=== PATIENT | female | born 1950 | race Caucasian/White ===

== ENCOUNTER 2017-09-30 20:45 | Inpatient (IN) | payer OTHER ==
[~2017-09-30] VITALS: Ht 157.5 cm; Wt 73.9 kg
[2017-09-30 20:45] VITALS: BP 119/43
[~2017-09-30 20:45] MED LIST: [UNRECOGNIZED DRUG - CODE]
--- NOTE | 2017-09-30 20:57 | NUR ---
PT AMBULATED TO BED 6
[2017-09-30] MEDS ORDERED: METO-485 PO (21:04)
[2017-09-30] MEDS ORDERED: INSU100S22 SUBQ (21:04)
[2017-09-30] MEDS ORDERED: SITA100T8 PO (21:04)
[2017-09-30] MEDS ORDERED: HUM SUBQ (21:04)
[2017-09-30] MEDS ORDERED: LISI10TA11 PO (21:04)
[2017-09-30] MEDS ORDERED: ERGO500028 PO (21:04)
[2017-09-30] MEDS ORDERED: ATOR20TA PO (21:04)
[2017-09-30] MEDS ORDERED: OMEP20TC12 PO (21:04)
[2017-09-30] MEDS ORDERED: FLOR250 PO (21:04)
[2017-09-30] MEDS ORDERED: ASPI-1677 PO (21:04)
[2017-09-30] MEDS ORDERED: GABA100C PO (21:04)
[2017-09-30] MEDS ORDERED: NAPR-1717 PO (21:04)
--- NOTE | 2017-09-30 21:04 | NUR ---
Dr. Chávez evaluating patient at bedside.
--- NOTE | 2017-09-30 21:08 | NUR ---
PATIENT PRESENTS TO ED WITH GENERALIZED BODY PAIN X 2 HOURS. PT DENIES N/V; SKIN IS PINK/WARM/DRY; AAOX4 WITH EVEN AND STEADY GAIT; LUNGS CLEAR BL; HR EVEN AND REGULAR; PT DENIES ANY FEVER, SOB, OR COUGH AT THIS TIME; PATIENT STATES PAIN OF 8/10 AT THIS TIME; VSS; PATIENT POSITIONED FOR COMFORT; HOB ELEVATED; BEDRAILS UP X1; BED DOWN. ER MD MADE AWARE OF PT STATUS.
[2017-09-30] MEDS ORDERED: KETOROLAC 30 MG/ML VIAL IVP ONE (21:10)
[2017-09-30] MEDS ORDERED: NACL 0.9% 1,000 ML IV ONE (21:10)
--- NOTE | 2017-09-30 21:13 | NUR ---
X-Ray at bedside.
--- NOTE | 2017-09-30 21:33 | NUR ---
TARGET SETTER RECEIVED BLOOD DRAW
[2017-09-30 21:35] LABS: BASOPHILS # (AUTO) 0.1 K/uL (0.00-0.22); BASOPHILS % (AUTO) 0.7 % (0.0-2.0); EOSINOPHILS # (AUTO) 0.1 K/uL (0-0.4); EOSINOPHILS % (AUTO) 0.7 % (0.0-4.0); HEMATOCRIT 37.1 % (36-48); HEMOGLOBIN 12.6 g/dL (12.0-16.0); LYMPHOCYTES % (AUTO) 16.9 % (20.5-51.1); MEAN CORPUSCULAR HEMOGLOBIN 29 pg (27-31); MEAN CORPUSCULAR HGB CONC 34 g/dL (33-37); MEAN CORPUSCULAR VOLUME 86.1 fL (80-94); MONOCYTES # (AUTO) 0.6 K/uL (0.8-1.0); MONOCYTES % (AUTO) 4.7 % (1.7-9.3); PLATELET COUNT (AUTO) 325 K/uL (140-450); RED BLOOD CELL COUNT(AUTO) 4.31 MIL/uL (4.20-5.40); RED CELL DISTRIBUTION WIDTH 14.2 % (11.6-13.7); WHITE BLOOD COUNT (AUTO) 11.7 K/uL (4.8-10.8)
[2017-09-30 21:49] LABS: CARBON DIOXIDE 28.1 mmol/L (21-32); POTASSIUM 4.1 mmol/L (3.5-5.1)
[2017-09-30 21:55] LABS: ALBUMIN 3.5 g/dL (3.4-5.0); TOTAL BILIRUBIN 0.2 mg/dL (0.0-1.0)
[2017-09-30 22:21] LABS: APPEARANCE,URINE SL CLOUDY (CLEAR); BILIRUBIN,URINE NEGATIVE (NEGATIVE); BLOOD, URINE NEGATIVE (NEGATIVE); COLOR,URINE YELLOW (YELLOW); LEUKOCYTE ESTERASE ,URINE 1+ (NEGATIVE); NITRITE, URINE NEGATIVE (NEGATIVE); PH,URINE 5.5 (5.0-9.0); UGLUCOSE 3+ (NEGATIVE)
--- NOTE | 2017-09-30 22:40 | NUR ---
Dr. Chávez re-evaluating patient at bedside.
[2017-09-30 22:41] LABS: RBC,URINE 0-5 (RARE) /HPF (0-5)
[2017-09-30] MEDS ORDERED: cefTRIAXone 1,000 MG VIAL ONE (22:56)
[2017-09-30] MEDS ORDERED: MORPHINE SULFATE 2 MG/ML SYR IVP PRN (23:05)
[2017-09-30] MEDS ORDERED: LORazepam 2 MG/ML VIAL IVP PRN (23:05)
[2017-09-30] MEDS ORDERED: ONDANSETRON 4 MG/2 ML VIAL IVP PRN (23:05)
[2017-09-30] MEDS ORDERED: HYDROcodone/APAP 5/325 MG 1 TAB TAB PO PRN ×2 (23:05)
[2017-09-30] MEDS ORDERED: ACETAMINOPHEN 325 MG TAB PO PRN (23:05)
[2017-09-30] MEDS ORDERED: diphenhydrAMINE 50 MG/ML VIAL IVP ONE (23:20)
[2017-09-30 23:45] VITALS: BP 131/56
--- NOTE | 2017-09-30 23:45 | NUR ---
PATIENT ADMITTED TO THE UNIT FROM ER. PATIENT AMBULATED WITH STEADY GAIT FROM [facility]. FRENCH SPEAKING. NO SIGNS AND SYMPTOMS OF DISTRESS NOTED. NO C/O PAIN AT THIS TIME. PATIENT'S DAUGHTER FRANCISCO AT BEDSIDE. PATIENT'S DAUGHTER ABLE TO TRANSLATE TO MOTHER. PLAN OF CARE DISCUSSED WITH PATIENT AND DAUGHTER. BOTH VERBALIZED UNDERSTANDING. BED IN LOWEST POSITION, SIDE RAILS UP AND CALL LIGHT WITHIN REACH. WILL CONTINUE TO MONITOR
--- NOTE | 2017-09-30 23:49 | NUR ---
Patient will be admitted to care of dr. burt. Admited to tele. Will go to room 107-b. Belongings list completed. Report to SHAUNNA Mrach.
--- NOTE | 2017-10-01 01:30 | NUR ---
CHECKED ON PATIENT. PATIENT RESTING COMFORTABLY IN BED. NO SIGNS AND SYMPTOMS OF DISTRESS NOTED. BREATHING EVEN AND UNLABORED. WILL CONTINUE TO MONITOR.
--- NOTE | 2017-10-01 03:30 | NUR ---
CHECKED ON PATIENT. PATIENT IS ASLEEP. NO SIGNS AND SYMPTOMS OF DISTRESS NOTED. BREATHING EVEN AND UNLABORED. WILL CONTINUE TO MONITOR
[2017-10-01 04:00] VITALS: BP 130/60
[2017-10-01] MEDS: INSULIN LISPRO SLIDING SCALE 100 UNITS/ML VIAL SUBQ PRN ×2 (05:46→13:55)
[2017-10-01] MEDS: BLOOD GLUCOSE MONITORING 1 DEV DEV FS SCH ×2 (05:58→11:16)
--- NOTE | 2017-10-01 06:00 | NUR ---
CHECKED PATIENT'S BLOOD SUGAR. BS AT 407. NOTIFIED DR. KELLER. PER ARIANNA, GIVE PATIENT 10 UNITS HUMALOG INSTEAD OF ORDERED 5 UNITS
[2017-10-01 06:02] LABS: BASOPHILS # (AUTO) 0.1 K/uL (0.00-0.22); BASOPHILS % (AUTO) 0.8 % (0.0-2.0); EOSINOPHILS # (AUTO) 0.1 K/uL (0-0.4); EOSINOPHILS % (AUTO) 1.1 % (0.0-4.0); HEMATOCRIT 33.8 % (36-48); HEMOGLOBIN 11.5 g/dL (12.0-16.0); LYMPHOCYTES # (AUTO) 1.9 K/uL (2.5-16.5); LYMPHOCYTES % (AUTO) 21.1 % (20.5-51.1); MEAN CORPUSCULAR HEMOGLOBIN 30 pg (27-31); MEAN CORPUSCULAR HGB CONC 34 g/dL (33-37); MONOCYTES # (AUTO) 0.4 K/uL (0.8-1.0); MONOCYTES % (AUTO) 4.7 % (1.7-9.3); NEUTROPHILS # (AUTO) 6.4 K/uL (1.8-7.7); NEUTROPHILS % (AUTO) 72.3 % (42.2-75.2); PLATELET COUNT (AUTO) 281 K/uL (140-450); RED BLOOD CELL COUNT(AUTO) 3.88 MIL/uL (4.20-5.40); RED CELL DISTRIBUTION WIDTH 14.2 % (11.6-13.7); WHITE BLOOD COUNT (AUTO) 8.8 K/uL (4.8-10.8)
[2017-10-01] MEDS: INSULIN LISPRO 100 UNITS/ML VIAL SUBQ SCH ×2 (06:12→13:55)
[2017-10-01] MEDS ORDERED: PANTOPRAZOLE 40 MG TABEC PO SCH (06:30)
[2017-10-01 06:58] LABS: ANION GAP 10.9 (8-16); CARBON DIOXIDE 25.7 mmol/L (21-32); POTASSIUM 4.6 mmol/L (3.5-5.1); TOTAL BILIRUBIN 0.4 mg/dL (0.0-1.0)
--- NOTE | 2017-10-01 07:11 | NUR ---
PATIENT REPORT GIVEN TO MORNING NURSE AT BEDSIDE FOR CONTINUITY OF CARE. PATIENT IS IN STABLE CONDITION
--- NOTE | 2017-10-01 07:12 | NUR ---
RECEIVED REPORT FROM MANAGER ANALYTICAL RN. PATIENT IS SLEEPING BUT AROUSABLE TO NAME, NO SIGNS AND SYMPTOMS OF ACUTE DISTRESS NOTED AT THIS TIME. HAS IV TO THE RIGHT AC 20G ON SALINE LOCK. SITE IS CLEAN, DRY, PATENT AND INTACT. DISCUSSED PLAN OF CARE WITH PATIENT AND SHE VERBALIZED UNDERSTANDING. BED IN LOWEST POSITION, SIDE RAILS UP X2, CALL LIGHT WITHIN REACH. WILL CONTINUE TO MONITOR.
[2017-10-01 08:00] VITALS: BP 121/55
[2017-10-01] MEDS: METOCLOPRAMIDE 10 MG TAB PO SCH ×2 (08:35→13:51)
--- NOTE | 2017-10-01 08:45 | NUR ---
PATIENT HAS BEEN SCREENED AND CATEGORIZED MODERATE NUTRITION RISK. PATIENT WILL BE SEEN WITHIN 3-5 DAYS OF ADMISSION. 10/03/17 10/05/[address]
[2017-10-01] MEDS ORDERED: GABAPENTIN 100 MG CAP PO SCH (09:00)
[2017-10-01] MEDS ORDERED: ATORVASTATIN 20 MG TAB PO SCH (09:00)
[2017-10-01] MEDS ORDERED: ASPIRIN 81 MG TAB.CHEW PO SCH (09:00)
[2017-10-01] MEDS ORDERED: INSULIN LANTUS 100 UNITS/ML 10 ML VIAL SUBQ SCH ×2 (09:00→21:00)
[2017-10-01] MEDS ORDERED: NON-FORMULARY ITEM (Omeprazole (Omeprazole) 1 TAB) PO SCH (09:00)
--- NOTE | 2017-10-01 09:19 | NUR ---
ASKED PATIENT IF SHE IS HAVING ANY SYMPTOMS OF UTI....FREQUENCY, BURNING, ETC., PATIENT DENIES ANY SYMPTOMS.
--- NOTE | 2017-10-01 11:45 | NUR ---
PATIENT WENT FOR STRESS TEST.
[2017-10-01 12:00] VITALS: BP 134/65
--- NOTE | 2017-10-01 13:08 | NUR ---
CALLED DR. RODGERS AT 12:07 TO LET HIM KNOW PATIENT IS READY FOR STRESS TEST. WAS TOLD BY NURSE THAT HE WAS IN A MIDDLE OF A CATH PROCEDURE. HE STATED THAT HE WAS AWARE OF THE 12PM SCHEDULED STRESS TEST AND THAT WE WILL STILL BE DOING IT TODAY.
--- NOTE | 2017-10-01 14:07 | NUR ---
Radiology Resident Notes: I met with patient and daughter at bedside to discuss information requested by patient in regards to obtaining a list of dme companies, besides [employer] and stated she will review list and follow up with dme companies. Addendum: 10/05/17 at 1315 by Em Coburn Radiology Resident Notes: Wrong Patient Please Disregard note.
--- NOTE | 2017-10-01 15:17 | NUR ---
FAXED INITIAL REVIEW TO [facility] [phone] PHON SUKI [phone]
--- NOTE | 2017-10-01 15:30 | NUR ---
PATIENT CLEARED TO BE DISCHARGED. IN STABLE CONDITION. GAVE PATIENT DISCHARGE INSTRUCTIONS. INFORMED HER ON WHEN TO SEEK EMERGENCY MEDICAL ATTENTION. PATIENT VERBALIZED UNDERSTANDING. REMOVED IV FROM SITE. CATHETER INTACT. ALL BELONGINGS COLLECTED BY PATIENT AND FAMILY. ID BANDS REMOVED. WILL WALK OUT WITH PATIENT.
== END 2017-10-01 15:30 | disposition home or self-care (01) | DRG 206 ==
LOC: MED 20:45 → MTU 23:02
PROVIDERS: ADMIT Hospitalist; ATTEND Hospitalist
DX: M94.0 Chondrocostal junction syndrome [Tietze] (principal); E11.9 Type 2 diabetes mellitus without complications; E86.0 Dehydration; K21.9 Gastro-esophageal reflux disease without esophagitis; E78.5 Hyperlipidemia, unspecified; I10 Essential (primary) hypertension
CPT/HCPCS: 36415; 71045; 80053; 81001; 82948; 83880; 84484; 85025; 87081; 87086; 93005; 93017; 96361; 96365; 96375; 99285; J0696; J1200; J1644; J1815; J1885; J7060; J8597; Q0092

== ENCOUNTER 2019-09-17 21:40 | Observation (INO) | payer OTHER, MEDICAID ==
[~2019-09-17] VITALS: Ht 175.3 cm; Wt 79.4 kg
[~2019-09-17 21:40] MED LIST changes: +ASPI-1884 PO; +ATOR20TA PO; +ERGO500028 PO; +FLOR250 PO; +GABA100C PO; +HUM SUBQ; +INSU100S22 SUBQ; +LISI10TA11 PO; +METO-485 PO; +OMEP20TC12 PO; +SITA100T8 PO; -[UNRECOGNIZED DRUG - CODE]
[2019-09-17 21:46] VITALS: BP 160/63
--- NOTE | 2019-09-17 21:53 | NUR ---
PT AMBULATED TO ER BED 11
--- NOTE | 2019-09-17 21:55 | NUR ---
PT 68 Y/O FEMALE BIB SELF FOR C/O STERNAL CHEST PAIN SINCE THIS MORNING. PT STATES CHEST PAIN IS 5/10, SHARP, AND IS MOSTLY PROVOKED WITH HEAVY BREATHING. PT STATES PAIN IS NON RADIATING. PT RESPIRATIONS ARE EVEN AND UNLBORED. SKIN IS WARM AND DRY TO TOUCH. PT DENIES COUGH OR FEVER. PT DENIES TAKING ANY MEDICATION FOR PAIN. PT ON AIRDROP SYSTEMS TECHNICIAN. BED LOCKED AND IN LOWEST POSITION. MEDHX: DM TYPE II ALLERGIES: PENECILLIN, ROCEPHIN.
--- NOTE | 2019-09-17 21:58 | NUR ---
ERMD BEDSIDE EVALUATING PT
--- NOTE | 2019-09-17 22:00 | NUR ---
XR AT BEDSIDE.
[2019-09-17] MEDS ORDERED: NITROGLYCERIN 0.4 MG TAB SL ONE (22:05)
[2019-09-17] MEDS ORDERED: ASPIRIN 325 MG TAB PO ONE (22:05)
--- NOTE | 2019-09-17 22:05 | NUR ---
EKG BEING PERFORMED AT BEDSIDE.
--- NOTE | 2019-09-17 22:11 | NUR ---
EKG PERFORMED AT BEDSIDE
--- NOTE | 2019-09-17 22:12 | NUR ---
ASA 325MG GIVEN PO AND NITROSTAT 0.4MG GIVEN SUBLINGUAL.
--- NOTE | 2019-09-17 22:13 | NUR ---
LAB AT BEDSIDE.
--- NOTE | 2019-09-17 22:30 | NUR ---
PT STATES, "THE MEDICINE HELPED. I FEEL LIKE I CAN BREATH BETTER AGAIN." PAIN 3/10. IN STERNAL CHEST AND IS TOLERABLE.
--- NOTE | 2019-09-17 22:34 | NUR ---
Shahbaz coello in [facility] - 09/17/19 at 2234 by MEDFL1 ASA 325MG GIVEN PO AND NITROSTAT 0.4MG GIVEN SUBLINGUAL.
[2019-09-17 22:38] LABS: BASOPHILS # (AUTO) 0.1 K/uL (0.00-0.22); BASOPHILS % (AUTO) 0.8 % (0.0-2.0); EOSINOPHILS # (AUTO) 0.2 K/uL (0-0.4); EOSINOPHILS % (AUTO) 2.4 % (0.0-4.0); HEMATOCRIT 33.5 % (36-48); HEMOGLOBIN 11.1 g/dL (12.0-16.0); LYMPHOCYTES # (AUTO) 2.1 K/uL (2.5-16.5); LYMPHOCYTES % (AUTO) 31.5 % (20.5-51.1); MEAN CORPUSCULAR HEMOGLOBIN 30 pg (27-31); MEAN CORPUSCULAR HGB CONC 33 g/dL (33-37); MEAN CORPUSCULAR VOLUME 91.1 fL (80-94); MONOCYTES # (AUTO) 0.5 K/uL (0.8-1.0); MONOCYTES % (AUTO) 7.3 % (1.7-9.3); NEUTROPHILS # (AUTO) 3.8 K/uL (1.8-7.7); PLATELET COUNT (AUTO) 339 K/uL (140-450); RED BLOOD CELL COUNT(AUTO) 3.68 MIL/uL (4.20-5.40); RED CELL DISTRIBUTION WIDTH 13.1 % (11.6-13.7); WHITE BLOOD COUNT (AUTO) 6.6 K/uL (4.8-10.8)
[2019-09-17 22:57] LABS: ALBUMIN 3.2 g/dL (3.4-5.0); ANION GAP 11.6 (8-16); CARBON DIOXIDE 28.8 mmol/L (21-32); CREATININE 0.9 mg/dL (0.6-1.3); POTASSIUM 4.4 mmol/L (3.5-5.1); TOTAL BILIRUBIN 0.3 mg/dL (0.0-1.0)
--- NOTE | 2019-09-17 23:28 | NUR ---
PT CONTINUES ON LOGISTICS ENGINEER. VSS. PT DENIES FEELING SOB AT THIS TIME. O2SAT @ 99% ON RA. PT PAIN CONTINUES AT 3/10 IN CHEST BUT PT STATES,"IT'S TOLERABLE AND I FEEL A LOT BETTER."
--- NOTE | 2019-09-17 23:35 | NUR ---
PER PERMISSION OF PT SPOKE WITH DAUGHTER ON PHONE AND GAVE HER AN UPDATE ON PT CONDITION AND NOTIFIED HER OF PENDING ADMIT. DAUGHTER FRANCISCO [phone].
--- NOTE | 2019-09-18 00:14 | NUR ---
DR. FERGUSON BEDSIDE EVALUATING PT
[2019-09-18] MEDS ORDERED: NACL 0.9% 1,000 ML IV SCH (00:53)
[2019-09-18] MEDS ORDERED: MORPHINE SULFATE 2 MG/ML SYR IVP PRN (00:55)
[2019-09-18] MEDS ORDERED: ACETAMINOPHEN 325 MG TAB PO PRN (00:55)
[2019-09-18] MEDS ORDERED: ONDANSETRON 4 MG/2 ML VIAL IM/IVP PRN (00:55)
[2019-09-18] MEDS ORDERED: DOCUSATE SODIUM 100 MG GELCAP PO PRN (00:55)
[2019-09-18] MEDS ORDERED: HYDROcodone/APAP 5/325 MG 1 TAB TAB PO PRN (00:55)
[2019-09-18] MEDS ORDERED: lisinopriL 10 MG TAB PO SCH ×2 (01:00→09:00)
[2019-09-18] MEDS ORDERED: METOPROLOL 25 MG TAB PO SCH (01:00)
[2019-09-18] MEDS ORDERED: DEXTROSE 50% 50 ML SYR IVP PRN (01:05)
[2019-09-18] MEDS ORDERED: GLUCAGON 1 MG VIAL IVP PRN (01:05)
[2019-09-18] MEDS ORDERED: ATORVASTATIN 20 MG TAB PO SCH ×3 (01:05→09:00)
[2019-09-18 01:26] LABS: APPEARANCE,URINE SL CLOUDY (CLEAR); BILIRUBIN,URINE NEGATIVE (NEGATIVE); BLOOD, URINE NEGATIVE (NEGATIVE); COLOR,URINE YELLOW (YELLOW); LEUKOCYTE ESTERASE ,URINE 1+ (NEGATIVE); NITRITE, URINE NEGATIVE (NEGATIVE); PH,URINE 5.5 (5.0-9.0); UGLUCOSE 1+ (NEGATIVE)
[2019-09-18] MEDS ORDERED: NITROGLYCERIN 0.4 MG TAB SL PRN (01:30)
[2019-09-18 01:31] LABS: PROTHROMBIN TIME 9.6 secs (10.8-13.4)
[2019-09-18 01:32] LABS: MAGNESIUM 2.2 mg/dL (1.8-2.4); PHOSPHORUS 3.3 mg/dL (2.5-4.9)
[2019-09-18 01:33] LABS: CHOL/HDL RATIO 3.2 (1-4.5); FREE T4 (FREE THYROXINE) 1.37 ng/dL (0.76-1.46); THYROID STIMULATING HORMONE 5.98 uIU/mL (0.34-3.74)
[2019-09-18 01:36] LABS: RBC,URINE 0-5 /HPF (0-5)
[2019-09-18 01:39] LABS: BARBITURATE, URINE NEGATIVE ng/ml (NEG <=200); BENZODIAZEPINE, URINE NEGATIVE ng/mL (NEG <=200); CANNABINOID, URINE NEGATIVE ng/mL (NEG <=50); COCAINE, URINE NEGATIVE ng/mL (NEG <=300); OPIATE, URINE NEGATIVE ng/mL (NEG <=2000); PHENCYCLIDINE SCREEN,URINE NEGATIVE ng/mL (NEG <=25)
--- NOTE | 2019-09-18 01:40 | NUR ---
MRSA NASAL SWAB COLLECTED AND GIVEN TO RENT AND MISCELLANEOUS REMITTANCE CLERK.
[2019-09-18] MEDS ORDERED: ALUMINUM HYD/MAG/SIMETHICONE 30 ML UDC PO PRN (01:45)
[2019-09-18] MEDS ORDERED: DICYCLOMINE 10 MG CAP PO ONE (01:45)
[2019-09-18] MEDS ORDERED: LIDOCAINE VISCOUS 2% 20 ML UDC PO PRN (01:45)
--- NOTE | 2019-09-18 01:45 | NUR ---
UA COLLECTED AND GIVEN TO SCREWMAKER AUTOMATIC.
--- NOTE | 2019-09-18 01:49 | NUR ---
PT RESTING IN BED AND IS RESPONSIVE TO VERBAL STIMULI. PT ON BREAK OFF WORKER. VSS. RESPIRATIONS ARE EVEN AND UNLABORED. BED LOCKED AND IN LOWEST POSTION.
--- NOTE | 2019-09-18 02:47 | NUR ---
0.9NACL MED ORDER STARTED AT 60CC/HR
[2019-09-18] MEDS ORDERED: DICYCLOMINE 10 MG CAP ONE (02:55)
[2019-09-18] MEDS ORDERED: CRUSHER, PILL MC ONE (02:57)
[2019-09-18] MEDS: FAMOTIDINE 20 MG TAB PO SCH ×3 (03:09→21:42)
--- NOTE | 2019-09-18 03:16 | NUR ---
PER BRUCE PRINCE TO GIVE BOTH ZESTRIL AND SATHISH AT THIS TIME. Addendum: 09/18/19 at 0404 by [facility] BP 132/56
--- NOTE | 2019-09-18 03:42 | NUR ---
PT MEDICATED WITH LISINOPRIL, METOPROLOL, PEPCID, AND BENTYL. TOLERATED WELL. NADR
[2019-09-18] MEDS ORDERED: SODIUM FERRIC GLUCONATE 125 MG in NACL 0.9% 100 ML IV SCH (04:45)
[2019-09-18] MEDS: LEVOFLOXACIN 250 MG/D5 PREMIX 50 ML IV SCH (05:08)
--- NOTE | 2019-09-18 05:10 | NUR ---
LEVAQUIN 250MG IN D5% 50 ML GIVEN IVPB @ 50 ML/HR. IV SITE IS PATENT. NO REDNESS, SWELLING OR C/O PAIN AT SITE.
--- NOTE | 2019-09-18 05:15 | NUR ---
FERRLECIT 125MG IN NS 0.9% 100ML NOT IN OMNICELL. PEWTER CASTER MADE AWARE. WAITING FOR MEDICATION TO ADMINISTER.
[2019-09-18] MEDS ORDERED: SODIUM FERRIC GLUCONATE 12.5 MG/ML AMP IV ONE (05:48)
[2019-09-18] MEDS ORDERED: NACL 0.9% 1,000 ML IV ONE (06:00)
--- NOTE | 2019-09-18 06:10 | NUR ---
PT B/P 94/53. PT AAO X4. RESPIRATIONS ARE EVEN AND UNLABORED. CALLED AND GAVE NEW ORDER FOR 1L NS 0/9% BOLUS. IV PLACED IN L HAND 22G.
--- NOTE | 2019-09-18 06:15 | NUR ---
CALLED SINTER MACHINE OPERATOR FOR MEDICATION FERRLECIT 62.5MG D/T NOT BEING IN OMNICELL. WILL WAIT FOR MEDICATION.
[2019-09-18 07:10] VITALS: BP 117/56
--- NOTE | 2019-09-18 07:10 | NUR ---
PT B/P 119/72. VSS. PT AAO X4. 0/10 PAIN RESPIRATIONS ARE EVEN AND UNLABORED. SKIN IS WARM AND DRY TO TOUCH.
--- NOTE | 2019-09-18 07:10 | NUR ---
RECEIVED PATIENT FROM ED NURSE FOR CONTINUITY OF CARE VIA VI. PATIENT IS AAOX4. CROATIAN SPEAKING ONLY. RESPIRATIONS EVEN AND UNLABORED, ROOM AIR. VISIBLE CHEST RISE AND FALL NOTED. ON TELE MONITORING. DX: CHEST PAIN, R/O ACS. PATIENT DENIES CHEST PAIN AT THIS TIME. ABDOMEN SOFT AND NONTENDER. DIET PENDING. SKIN WARM, DRY, AND INTACT. IV IN THE R AC RUNNING NS AT 20 ML/HR, RUNNING NS AT 60 ML/HR AND FERRLECIT 110 ML/HR FROM ED. AMBULATORY. CONTINENT. BED IN LOW POSITION. CALL LIGHT IS WITHIN REACH. WILL CONTINUE TO MONITOR.
--- NOTE | 2019-09-18 07:20 | NUR ---
Patient will be admitted to care of . Admited to TELE. Will go to room 11A. Belongings list completed. Report to PRINCESS MAZA.
[2019-09-18] MEDS ORDERED: ASPIRIN 81 MG TAB.CHEW PO SCH (09:00)
--- NOTE | 2019-09-18 09:04 | NUR ---
PATIENT HAS BEEN SCREENED AND CATEGORIZED MODERATE NUTRITION RISK. PATIENT WILL BE SEEN WITHIN 3-5 DAYS OF ADMISSION. 09/19/19 09/21/[address]
[2019-09-18] MEDS: GABAPENTIN 100 MG CAP PO SCH ×2 (09:22→21:42)
[2019-09-18] MEDS: LACTOBACILLUS RHAMNOSUS GG 1 EACH CAP PO SCH (09:22)
[2019-09-18] MEDS: ENOXAPARIN 40 MG/0.4 ML SYR SUBQ SCH (09:28)
[2019-09-18] MEDS: BLOOD GLUCOSE MONITORING 1 DEV DEV FS SCH ×4 (09:29→21:00)
--- NOTE | 2019-09-18 09:31 | NUR ---
GIVEN MORNING MEDICATIONS PO. LOVENOX SUQB IN THE ABD. PLT 339. PATIENT TOLERATED WELL. MEDICATION EDUCATION GIVEN. BED IN LOW POSITION. CALL LIGHT IS WITHIN REACH. WILL CONTINUE TO MONITOR.
--- NOTE | 2019-09-18 10:10 | NUR ---
ULTRASOUND AT BEDSIDE
--- NOTE | 2019-09-18 11:23 | NUR ---
BLOOD SUGAR CHECKED: 435. WILL NOTIFY DOCTOR. VS CHECKED. VSS. DENIES CHEST PAIN
[2019-09-18 11:34] LABS: BASOPHILS # (AUTO) 0.1 K/uL (0.00-0.22); BASOPHILS % (AUTO) 0.9 % (0.0-2.0); EOSINOPHILS # (AUTO) 0.1 K/uL (0-0.4); EOSINOPHILS % (AUTO) 1.9 % (0.0-4.0); HEMATOCRIT 34.5 % (36-48); HEMOGLOBIN 11.2 g/dL (12.0-16.0); LYMPHOCYTES # (AUTO) 1.4 K/uL (2.5-16.5); LYMPHOCYTES % (AUTO) 25.1 % (20.5-51.1); MEAN CORPUSCULAR HEMOGLOBIN 30 pg (27-31); MEAN CORPUSCULAR HGB CONC 33 g/dL (33-37); MEAN CORPUSCULAR VOLUME 92.8 fL (80-94); MONOCYTES # (AUTO) 0.4 K/uL (0.8-1.0); MONOCYTES % (AUTO) 7.3 % (1.7-9.3); NEUTROPHILS # (AUTO) 3.6 K/uL (1.8-7.7); NEUTROPHILS % (AUTO) 64.8 % (42.2-75.2); PLATELET COUNT (AUTO) 308 K/uL (140-450); RED BLOOD CELL COUNT(AUTO) 3.72 MIL/uL (4.20-5.40); RED CELL DISTRIBUTION WIDTH 13.4 % (11.6-13.7); WHITE BLOOD COUNT (AUTO) 5.6 K/uL (4.8-10.8)
[2019-09-18 12:00] VITALS: BP 119/54
[2019-09-18] MEDS: ASPIRIN 81 MG TAB.CHEW PO SCH (12:12)
[2019-09-18 12:24] LABS: ANION GAP 11.9 (8-16); CARBON DIOXIDE 26.1 mmol/L (21-32); CREATININE 0.9 mg/dL (0.6-1.3)
[2019-09-18 12:26] LABS: PHOSPHORUS 3.3 mg/dL (2.5-4.9)
[2019-09-18] MEDS: INSULIN LISPRO SLIDING SCALE 100 UNITS/ML VIAL SUBQ PRN ×3 (12:26→22:59)
--- NOTE | 2019-09-18 12:27 | NUR ---
ADMINISTERED 12 UNITS OF HUMALOG SUQB IN THE RIGHT UPPER ARM FOR BS OF 435. PATIENT TOLERATED WELL. LUNCH TRAY AT BEDSIDE. Addendum: 09/18/19 at 1228 by Princess Ana María Sen RN MARTY ASPIRIN ALSO GIVEN
--- NOTE | 2019-09-18 12:35 | NUR ---
CRITICAL LAB: GLUCOSE OF 446. DR. BARNARD AWARE.
--- NOTE | 2019-09-18 12:49 | NUR ---
PATIENT AWARE THAT STOOL SAMPLE IS NEEDED. HAT IS IN THE TOILET BOWL PLACE.
--- NOTE | 2019-09-18 13:29 | NUR ---
PATIENT WANTS TO GO LEAVE AGAINST MEDICAL LEAVE. WILL NOTIFY DR. BARNARD.
--- NOTE | 2019-09-18 14:50 | NUR ---
PATIENT IS INSISTING OF GOING AMA. DR. PEREZ SIGNED AMA PAPER. WILL TALK TO PATIENT
--- NOTE | 2019-09-18 15:15 | NUR ---
EXPLAINED TO THE PATIENT THAT THERE IS COMPLICATIONS IF SHE GOES AMA. CYRACOM USED RODY #[id number]. PATIENT STATED SHE WILL STAY TONIGHT. DR. PEREZ AWARE. Addendum: 09/18/19 at 1520 by Princess Ana María Sen RN DR. BARNARD AWARE WELL
--- NOTE | 2019-09-18 15:42 | NUR ---
PLACED ROOM TELEPHONE TO THE PATIENT'S ROOM.
--- NOTE | 2019-09-18 15:50 | NUR ---
DR. BARNARD AT BEDSIDE EXAMINING THE PATIENT. LAB AT BEDSIDE WELL
--- NOTE | 2019-09-18 15:59 | NUR ---
GIVEN NITROSTAT SUBLINGUAL. EXPLAINED MEDICATION. PATIENT VERBALIZED UNDERSTANDING. BED IN LOW POSITION. CALL LIGHT IS WITHIN REACH. WILL CONTINUE TO MONITOR.
[2019-09-18 16:00] VITALS: BP 112/49
--- NOTE | 2019-09-18 16:10 | NUR ---
CONTACT PRECAUTION WITH BLEACH FOR C-DIFF IN PLACE.
--- NOTE | 2019-09-18 16:27 | NUR ---
CHECKED BLOOD SUGAR FINGERSTICK: 166. WILL GIVE INSULIN COVERAGE. PATIENT STATED NO PAIN POST NITROSTAT 1X DOSE. WILL CONTINUE TO MONITOR.
--- NOTE | 2019-09-18 17:19 | NUR ---
GIVEN 2 UNITS OF HUMALOG SUBQ IN THE RIGHT UPPER ARM FOR BS OF 166. EXPLAINED MEDICATION. PATIENT TOLERATED WELL. DR. HUDSON, MARKETING FINANCE SPECIALIST AT BEDSIDE.
--- NOTE | 2019-09-18 17:52 | NUR ---
NPO AFTER MIDNIGHT SIGN POSTED. PATIENT IS ASLEEP AT THIS TIME. NO BM DURING THE SHIFT, UNABLE TO COLLECT OB. WILL ENDORSE TO PM NURSE.
--- NOTE | 2019-09-18 19:22 | NUR ---
ENDORSED PATIENT TO THE CROP SCOUT NURSE FOR CONTINUITY OF CARE. PATIENT IS IN STABLE CONDITION.
--- NOTE | 2019-09-18 19:30 | NUR ---
RECEIVED REPORT FROM [facility] RN DAYSHIFT NURSE AT BEDSIDE FOR CONTINUITY OF CARE, PT IN STABLE CONDITION.
[2019-09-18 20:00] VITALS: BP 126/63
--- NOTE | 2019-09-18 20:00 | NUR ---
PT IN BED AOX4 ABLE TO AMBULATE STEADY TO BATHROOM, HER RESPIRATIONS ARE EVEN AND UNLABORED ON ROOM AIR V/S FOLLOWS: T 97.0 P 75 R 18 B/P 120/63 02 95% ON ROOM AIR. ALL ORDERED PRECAUTINS IN PLACE. [PT AWARE OF NEEDED STOOL SAMPLE
[2019-09-18] MEDS ORDERED: INSULIN LANTUS 100 UNITS/ML 10 ML VIAL SUBQ SCH (21:00)
--- NOTE | 2019-09-18 21:00 | NUR ---
PT GIVEN ALL ORDERED MEDS EDUCATION REGARDING MEDICATION PROVIDED AT BEDSIDE. F/S IS 352 , SPOKE WITH MD FERGUSON REGARDING TO GIVEN COVERAGE PLUS ORDERED LANTUS, HE SAID OK AND THAT HE WOULD CHANGE FLUIDS TO D5 BECAUSE PT NEEDS TO REMAIN NPO FOR ORDERED TESTS.
[2019-09-19] VITALS: BP 130/62
--- NOTE | 2019-09-19 | NUR ---
PT IN BED ASLEEP V/S FOLLOWS : T 98.1 P 62 R 18 B/P 130/62 02 95% ON R/A. ALL UNIVERSAL PRECAUTIONS IN PLACE.
[2019-09-19] MEDS: DEXT 5% / NACL 0.9% 500 ML IV SCH ×2 (01:14→13:38)
[2019-09-19 04:00] VITALS: BP 123/59
[2019-09-19] MEDS: LEVOFLOXACIN 250 MG/D5 PREMIX 50 ML IV SCH (04:28)
--- NOTE | 2019-09-19 04:45 | NUR ---
PT GIVEN ORDERED IV ABT LEVAQUIN.
--- NOTE | 2019-09-19 06:39 | NUR ---
FINGERSTICK 72 PT C/ SYMPTOMS OF LOW BLOOD SUGAR, SPOKE WITH KATRINA CASAS TO GIVEN GLUCAGEN IVP TO INCREASE BLOOD SUGAR.
--- NOTE | 2019-09-19 07:00 | NUR ---
RECEIVED REPORT FROM SCALES INSPECTOR NURSE ON PATIENT. PATIENT CURRENTLY STABLE, IN NO S/S RESPIRATORY DISTRESS, NO COMPLAINTS OF PAIN. PT NPO, AWARE OF STRESS TEST AND NEED TO COLLECT STOOL SPECIMEN. CURRENTLY ON RA. ALL NEEDS MET, CALL LIGHT WITHIN REACH, WILL CONTINUE TO MONITOR.
[2019-09-19] MEDS: BLOOD GLUCOSE MONITORING 1 DEV DEV FS SCH ×2 (07:30→11:53)
[2019-09-19 08:00] VITALS: BP 138/63
--- NOTE | 2019-09-19 08:00 | NUR ---
PATIENT RESTING COMFORTABLY IN BED. VITAL SIGNS ARE FOLLOWS 138/63, HR 77, 98.6F, 97% O2 SATURATION ON ROOM AIR. ALL NEEDS MET, WILL CONTINUE TO MONITOR, CALL LIGHT WITHIN REACH.
[2019-09-19 08:19] LABS: FOLIC ACID 11.9 ng/mL (>3.0)
[2019-09-19] MEDS ORDERED: SODIUM FERRIC GLUCONATE 125 MG in NACL 0.9% 100 ML IV SCH (09:00)
[2019-09-19] MEDS: GABAPENTIN 100 MG CAP PO SCH (09:08)
[2019-09-19] MEDS: LACTOBACILLUS RHAMNOSUS GG 1 EACH CAP PO SCH (09:09)
[2019-09-19] MEDS: FAMOTIDINE 20 MG TAB PO SCH (09:09)
[2019-09-19] MEDS: ASPIRIN 81 MG TAB.CHEW PO SCH (09:09)
--- NOTE | 2019-09-19 09:09 | NUR ---
MORNING MEDICATIONS GIVEN, NO ADVERSE SIDE EFFECTS NOTED, TOLERATED WELL. NO COMPLAINTS OF PAIN AT THIS TIME. CALL LIGHT WITHIN REACH. WILL CONTINUE TO MONITOR.
[2019-09-19] MEDS: ENOXAPARIN 40 MG/0.4 ML SYR SUBQ SCH (09:12)
[2019-09-19 12:00] VITALS: BP 155/58
--- NOTE | 2019-09-19 12:00 | NUR ---
PATIENT RESTING IN BED, NO S/S RESPIRATORY DISTRESS. VITAL SIGNS ARE FOLLOWS: 155/68, HR 71, 97.7 F, 98% O2 SATURATION ON ROOM AIR. FINGERSTICK BLOOD SUGAR RESULT WAS 174, WILL GIVE INSULIN COVERAGE. ALL NEEDS MET, WILL CONTINUE TO MONITOR.
[2019-09-19] MEDS: INSULIN LISPRO SLIDING SCALE 100 UNITS/ML VIAL SUBQ PRN (12:06)
--- NOTE | 2019-09-19 13:00 | NUR ---
STOOL, C-DIFF, AND OCCULT BLOOD SPECIMEN COLLECTED AND SENT TO LAB. STOOL WAS BROWN, SOFT, AND FORMED. CONTACT PRECAUTIONS FOLLOWED. PT RESTING COMFORTABLY IN BED, WILL CONTINUE TO MONITOR.
--- NOTE | 2019-09-19 13:44 | NUR ---
DC PLANNIN YRS OLD FEMALE PATIENT WAS ADMITTED FROM HOME WITH A DX OF CHEST PAIN R/O ACS. PT HAS A HX OF DM HTN HLD AND GERD. SEEN BY TREE AND SHRUB WORKER AND ORDERED KATHRYN SCAN. PER DR CENTENO UNABLE TO DO KATHRYN SCAN TODAY PER SHORT STAFF. CONTACTED [facility] SPOKE WITH ANALI NOTIFIED HER THAT PT NEEDS KATHRYN SCAN PER TREE AND SHRUB WORKER. ANALI STATED PT NEEDS TO BE TRANSFERRED TO THE CONTRACTED FACILITY AND REQUESTED CLINICAL TO BE FAXED. ALL THE PAPER WORK FAXED TO [phone] CM TO FOLLOW. Addendum: 09/19/19 at 1453 by Esperanza Mann CM DC PLANNING: RECEIVED A CALL FROM [facility] REQUIRING COVID TEST FOR TRANSFER TO ANOTHER HOSPITAL. DR CENTENO DISCUSSED WITH NAJMA THAT COVID TEST RESULT WONT BE READY TODAY AND REQUESTING IF PATIENT STAYING FOR COVID RESULT WE CAN DO THE KATHRYN SCAN TOMORROW . IMAN CALLED BACK AND AGREED THAT PATIENT CAN STAY TODAY AND KATHRYN SCAN TOMORROW PER [facility] WILL APPROVE TODAY'S STAY. CM TO FOLLOW
--- NOTE | 2019-09-19 15:03 | NUR ---
Echocardiogram completed.
--- NOTE | 2019-09-19 15:30 | NUR ---
PATIENT STATES DESIRE TO LEAVE DESPITE MEDICAL ADVICE TO CONTINUE CARE. EXPLAINED BENEFITS AND RISKS OF LEAVING AGAINST MEDICAL ADVICE. PATIENT STILL DESIRED TO LEAVE AND LEFT FACILITY AT 1530. NO S/S RESPIRATORY DISTRESS. LEFT FACILITY WITH ALL BELONGINGS, CARDIAC MECHANICAL ENGINEERING PROFESSOR, IV, AND HOSPITAL WRISTBANDS REMOVED. ESCORTED TO FRONT VIA WHEELCHAIR.
[2019-09-19] MEDS ORDERED: metFORMIN 500 MG TAB PO SCH (17:00)
--- NOTE | 2019-09-29 08:03 | NUR ---
LATE ENTRY- IV FERRLICIT DISCONTINUED AT 30. Addendum: 09/30/19 at 0739 by MED LATE ENTRY [id number].
--- NOTE | 2019-09-30 07:40 | NUR ---
LATE ENTRY- IV NORMAL SALINE RUNNING AT 60ML/HR DISCONTINUED AT 0720.
== END 2019-09-19 15:30 | disposition left against medical advice (07) ==
LOC: MED 21:40 → UNDOADMOB 09-18 → MTU 09-18 → MMU 09-18
PROVIDERS: ADMIT General Practice; ATTEND General Practice
DX: R07.89 Other chest pain (principal); R19.7 Diarrhea, unspecified; N39.0 Urinary tract infection, site not specified; I10 Essential (primary) hypertension; E11.40 Type 2 diabetes mellitus with diabetic neuropathy, unspecified; D63.8 Anemia in other chronic diseases classified elsewhere; E02 Subclinical iodine-deficiency hypothyroidism; K21.9 Gastro-esophageal reflux disease without esophagitis; E55.9 Vitamin D deficiency, unspecified; E78.5 Hyperlipidemia, unspecified; Z90.710 Acquired absence of both cervix and uterus; Z79.4 Long term (current) use of insulin; Z79.82 Long term (current) use of aspirin; Z79.899 Other long term (current) drug therapy; Z88.1 Allergy status to other antibiotic agents; Z88.0 Allergy status to penicillin
CPT/HCPCS: 36415; 71045; 80048; 80053; 80061; 80305; 81001; 82140; 82150; 82272; 82550; 82607; 82728; 82746; 82948; 83036; 83540; 83605; 83615; 83690; 83735; 83880; 84100; 84439; 84443; 84484; 85025; 85045; 85610; 85730; 87070; 87081; 87086; 87186; 93005; 93307; 93970; 96361; 96365; 96366; 96367; 96372; 99285; G0378; J1610; J1650; J1815; J1956; J2916; J7042; Q0092